=== PATIENT | female | born 1995 | race Caucasian/White ===

== ENCOUNTER 2019-01-30 18:34 | Emergency (ER) | payer OTHER, SELFPAY ==
[~2019-01-30] VITALS: Ht 175.3 cm; Wt 130.6 kg
--- NOTE | 2019-01-30 19:28 | NUR ---
PT LAYING BACK IN BED, RESPIRATIONS EVEN AND UNLABORED. CXR AT BEDSIDE. NAD NOTED AT THIS TIME.
[2019-01-30 19:30] LABS: BASOPHILS # (AUTO) 0.04 x10^3/uL (0-0.1); BASOPHILS % (AUTO) 1 % (0-1); EOSINOPHILS # (AUTO) 0.09 x10^3/uL (0-0.4); EOSINOPHILS % (AUTO) 1 % (1-7); LYMPHOCYTES # (AUTO) 2.74 x10^3/uL (1-3.4); LYMPHOCYTES % (AUTO) 35 % (22-44); MD NO; MEAN CORPUSCULAR HEMOGLOBIN 27.3 pg (27.0-34.8); MEAN CORPUSCULAR HGB CONC 32.4 g/dL (32.4-35.8); MEAN CORPUSCULAR VOLUME 84.3 fL (80-100); MEAN PLATELET VOLUME 8.3 fL (7.4-10.4); MONOCYTES # (AUTO) 0.33 x10^3/uL (0.2-0.8); MONOCYTES % (AUTO) 4 % (2-9); NEUTROPHILS # (AUTO) 4.66 x10^3/uL (1.8-6.8); NEUTROPHILS % (AUTO) 59 % (42-75); PLATELET COUNT 263 x10^3/uL (130-400); RED BLOOD COUNT 5.27 x10^6/uL (3.82-5.3); RED CELL DISTRIBUTION WIDTH 14.3 % (9.6-15.2)
[2019-01-30 19:37] LABS: ANION GAP 4 mmol/L (5-15); CALCIUM 9.5 mg/dL (8.5-10.1); CHLORIDE 109 mmol/L (98-107); CREATININE 0.99 mg/dL (0.55-1.02)
--- NOTE | 2019-01-30 20:05 | NUR ---
PT UP TO BATHROOM INDEPENDENTLY
--- NOTE | 2019-01-30 20:19 | NUR ---
NAD NOTED AT THIS TIME, RESPIRATIONS EVEN AND UNLABORED ON RA.
[2019-01-30 20:39] VITALS: BP 105/75
== END 2019-01-30 20:49 | disposition home or self-care (01) ==
LOC: ED 20:34
DX: R07.89 Other chest pain (principal); R00.0 Tachycardia, unspecified
CPT/HCPCS: 36415; 71045; 80048; 85025; 85379; 93005; 99284

== ENCOUNTER → 2020-09-27 | Outpatient (CLI) | payer OTHER ==
[2020-09-27 11:51] LABS: MEAN CORPUSCULAR HEMOGLOBIN 30.7 pg (27.0-34.8); MEAN CORPUSCULAR HGB CONC 34.6 g/dL (32.4-35.8); MEAN PLATELET VOLUME 8.8 fL (7.4-10.4); PLATELET COUNT 224 x10^3/uL (130-400); RED BLOOD COUNT 4.97 x10^6/uL (3.82-5.3); RED CELL DISTRIBUTION WIDTH 14.7 % (9.6-15.2)
[2020-09-27 12:02] LABS: ALBUMIN 3.7 g/dL (3.4-5.0); ANION GAP 5 mmol/L (5-15); CALCIUM 9.5 mg/dL (8.5-10.1); CHLORIDE 107 mmol/L (98-107)
[2020-09-27 12:27] LABS: % IRON SATURATION 30 % (20-55); ALANINE AMINOTRANSFERASE 15 U/L (12-78); ALKALINE PHOSPHATASE 70 U/L (45-117); BILIRUBIN,TOTAL 0.5 mg/dL (0.2-1.0); CREATININE 0.71 mg/dL (0.55-1.02); FOLATE LEVEL 18.3 ng/mL (3.1-17.5); IRON LEVEL 88 mcg/dL (50-170); TOTAL IRON BINDING CAPACITY 292 mcg/dL (250-450)
== END | disposition home or self-care (01) ==
LOC: LAB 11:31
PROVIDERS: ATTEND Nurse Practitioner Family
DX: Z98.84 Bariatric surgery status (principal)
CPT/HCPCS: 36415; 80053; 82306; 82607; 82728; 82746; 83540; 83550; 85027

== ENCOUNTER → 2020-12-05 | Outpatient (CLI) | payer OTHER | END | disposition home or self-care (01) | LOC: CFH 14:04 | PROVIDERS: ATTEND Nurse Practitioner Family | DX: N63.21 Unspecified lump in the left breast, upper outer quadrant (principal); N63.23 Unspecified lump in the left breast, lower outer quadrant ==